=== PATIENT | male | born 1985 | race Caucasian/White ===

== ENCOUNTER 2019-03-22 08:53 | Emergency (ER) | payer SELFPAY ==
--- OUTSIDE RECORDS SUMMARY | 2019-03-22 08:55 | XMS REPORT ---
:1985 [facility] Address [address] [place] [address] Care Team Providers Name Role Phone Unavailable Unavailable Unavailable Payers Payer Name Policy Type Policy Number Effective Date Expiration Date Problems This patient has no known problems. Allergies, Adverse Reactions, Alerts Allergy Allergy Status Severity Reaction(s) Onset Inactive Treating Comments Name Type Date Date Clinician No Known DA Active U 2018-11 Allergies 00:00:0 0 Medications This patient has no known medications. Results Test Description Test Time Test Comments Text Results Atomic Results Result Comments ALCOHOL 2018-11-24 20:56:00 Test Item Value Reference Range Comments ALCOHOL (test code=ALC) 0.053 G/dL <0.003 Ethyl Alcohol Interpretation: 0.100 gm/dL - Legally Intoxicated 0.300-0.400 gm/dL - Severely Intoxicated >0.400 gm/dL - Potentially LethalResults are for Medical purposes only, and not for Legal orEmployment evaluation purposes. BASIC METABOLIC [id number] 15:54:00 Test Item Value Reference Range Comments SODIUM (test code=NA) 142 mEq/L 134-147 POTASSIUM (test code=K) 3.6 mEq/L 3.4-5.0 CHLORIDE (test code=CL) 109 mEq/L 100-108 CARBON DIOXIDE (test code=CO2) 23 mEq/L 21-33 ANION GAP (test code=GAP) 14 0-20 GLUCOSE (test code=GLU) 113 mg/dL 70-110 BLOOD UREA NITROGEN (test 12 mg/dL 7-18 code=BUN) GLOMERULAR FILTRATION RATE 96.6 105-110 Units of measure=ml/min/1.73 (test code=GFR) m2 CREATININE (test code=CREAT) 0.9 mg/dL 0.6-1.3 CALCIUM (test code=CA) 9.8 mg/dL 8.0-10.5 HEPATIC FUNCTION [id number] 15:54:00 Test Item Value Reference Range Comments TOTAL PROTEIN (test code=PROT) 8.4 g/dL 6.4-8.2 ALBUMIN (test code=ALB) 4.80 g/dL 3.4-5.0 BILIRUBIN TOTAL (test code=BILT) 1.00 mg/dL 0.0-1.0 BILIRUBIN DIRECT (test code=BILD) 0.20 MG/DL 0.0-0.30 BILIRUBIN INDIRECT (test code=BILIND) 0.80 MG/DL SGOT/AST (test code=AST) 25 IUnit/L 15-37 SGPT/ALT (test code=ALT) 30 IUnit/L 15-65 ALKALINE PHOSPHATASE TOTAL (test code=ALKP) 96 IUnit/L 20-125 [id number] 15:54:00 Test Item Value Reference Range Comments ACETAMINOPHEN (test code=ACET) < 2 ug/mL 10-30 [id number] 15:54:00 Test Item Value Reference Range Comments SALICYLATE (test code=DARYL) < 1.7 mg/dL 2.8-20.0 [id number] 15:54:00 Test Item Value Reference Range Comments ALCOHOL (test code=ALC) 0.130 G/dL <0.003 Ethyl Alcohol Interpretation: 0.100 gm/dL - Legally Intoxicated 0.300-0.400 gm/dL - Severely Intoxicated >0.400 gm/dL - Potentially LethalResults are for Medical purposes only, and not for Legal orEmployment evaluation purposes. UA RFLX MICR CULT IF [id number] 15:52:00 Test Item Value Reference Range Comments UA COLOR (test code=COLU) YELLOW YEL/STRAW UA APPEARANCE (test code=APPU) CLEAR CLEAR UA GLUCOSE DIPSTICK (test code=DGLUU) NEGATIVE NEGATIVE UA BILIRUBIN DIPSTICK (test code=BILU) NEGATIVE NEGATIVE UA KETONE DIPSTICK (test code=KETU) NEGATIVE NEGATIVE UA SPECIFIC GRAVITY (test code=SGU) 1.008 1.005-1.030 UA BLOOD DIPSTICK (test code=ANN-MARIE) NEGATIVE NEGATIVE UA PH DIPSTICK (test code=MARINA) 5.0 5.0-7.0 UA PROTEIN DIPSTICK (test code=PROU) NEGATIVE NEGATIVE UA UROBILINIOGEN DIPSTICK (test code=URO) 0.2 mg/dL 0.2-1.0 UA NITRITE DIPSTICK (test code=HEATHER) NEGATIVE NEGATIVE UA LEUKOCYTE ESTERASE DIPSTICK (test 1+ NEGATIVE code=LEUU) UA WBC (test code=WBCU) 10-20 WBC/HPF 0-3 UA RBC (test code=RBCU) 0-3 RBC/HPF 0-3 UA WBC NO REFLEX (test code=WBCUCL) 10-20 WBC/HPF 0-3 UA BACTERIA (test code=BACU) TRACE /HPF NONE SEEN UA SQUAMOUS CELLS (test code=SQU) NONE SEEN /HPF NONE SEEN UA MUCUS (test code=MUCU) 2+ /LPF NONE SEEN Indication for culture: Dysuria/FrequencySpecimen Description: CLEAN CATCHDRUGS OF ABUSE SCREEN [id number] 15:51:00 Test Item Value Reference Range Comments URN COCAINE (test code=COCAURN) NEGATIVE NEGATIVE URN CANNABINOIDS (test NEGATIVE NEGATIVE code=CANNABURN) URN AMPHETAMINE (test NEGATIVE NEGATIVE code=AMPHETURN) URN BARBITURATE (test NEGATIVE NEGATIVE code=BARBITURN) URN BENZODIAZEPINE (test NEGATIVE NEGATIVE Cut-off value:200 ng/mL code=BENZOURN) URN OPIATES (test NEGATIVE NEGATIVE Cut-off value:2000 ng/mL code=OPIATURN) URN PHENCYCLIDINE (PCP) (test NEGATIVE NEGATIVE Cutoffs:Barbiturates code=PHENCURN) 200 ng/mLBenzodiazepines 200 ng/mLTHC Cannabinoids 50 ng/mLOpiates(Morphine) 2000 ng/mLAmphetamine 1000 ng/mLCocaine 300 ng/mLPCP phencyclidine 25 ng/mL Unconfirmed screening results shouldnot be used for non-medical purposes. BASIC METABOLIC [id number] 15:43:00 Test Item Value Reference Range Comments SODIUM (test code=NA) 142 mEq/L 134-147 POTASSIUM (test code=K) 3.6 mEq/L 3.4-5.0 CHLORIDE (test code=CL) 109 mEq/L 100-108 CARBON DIOXIDE (test code=CO2) 23 mEq/L 21-33 ANION GAP (test code=GAP) 14 0-20 GLUCOSE (test code=GLU) 113 mg/dL 70-110 BLOOD UREA NITROGEN (test code=BUN) 12 mg/dL 7-18 GLOMERULAR FILTRATION RATE (test code=GFR) 105-110 CREATININE (test code=CREAT) mg/dL 0.6-1.3 CALCIUM (test code=CA) 9.8 mg/dL 8.0-10.5 HEPATIC FUNCTION [id number] 15:43:00 Test Item Value Reference Range Comments TOTAL PROTEIN (test code=PROT) g/dL 6.4-8.2 ALBUMIN (test code=ALB) g/dL 3.4-5.0 BILIRUBIN TOTAL (test code=BILT) mg/dL 0.0-1.0 BILIRUBIN DIRECT (test code=BILD) MG/DL 0.0-0.30 SGOT/AST (test code=AST) IUnit/L 15-37 SGPT/ALT (test code=ALT) IUnit/L 15-65 ALKALINE PHOSPHATASE TOTAL (test code=ALKP) IUnit/L 20-125 [id number] 15:43:00 Test Item Value Reference Range Comments ACETAMINOPHEN (test code=ACET) ug/mL 10-30 [id number] 15:43:00 Test Item Value Reference Range Comments SALICYLATE (test code=DARYL) mg/dL 2.8-20.0 [id number] 15:43:00 Test Item Value Reference Range Comments ALCOHOL (test code=ALC) G/dL <0.003 CBC W/O [id number] 15:30:00 Test Item Value Reference Range Comments WHITE BLOOD CELL (test code=WBC) 9.47 x10 3/uL 4.5-11.0 RED BLOOD CELL (test code=RBC) 5.35 x10 6/uL 4.00-5.60 HEMOGLOBIN (test code=HGB) 16.1 g/dL 12.5-16.9 HEMATOCRIT (test code=HCT) 46.8 % 37.5-50.7 MEAN CELL VOLUME (test code=MCV) 87.5 fL 81.0-99.0 MEAN CELL HGB (test code=MCH) 30.1 pg 27.0-33.0 MEAN CELL HGB CONCETRATION (test code=MCHC) 34.4 g/dL 33.0-37.0 RED CELL DISTRIBUTION WIDTH CV (test code=RDW) 12.7 % 11.5-14.5 RED CELL DISTRIBUTION WIDTH SD (test 39.7 fL 37.0-54.0 code=RDW-SD) PLATELET COUNT (test code=PLT) 347 x10 3/uL 150-400 MEAN PLATELET VOLUME (test code=MPV) 11.7 fL 7.0-9.0
[2019-03-22 09:32] LABS: Potassium 3.2 mmol/L (3.5-5.1)
[2019-03-22 09:39] LABS: Absolute Lymphocytes (CBC) 2.5 K/uL (0.7-4.9); Basophils % 0.4 % (0-1.3); Lymphocytes % 19.3 % (15.3-44.8); MPV 10.9 fL (7.6-11.3); RBC Red Blood Cell Count 5.42 M/uL (4.33-5.43)
[2019-03-22] MEDS ORDERED: POTASSIUM CL SA 10 MEQ TAB PO ONE (09:47)
--- NOTE | 2019-03-22 10:17 | ER ---
Nurse's Notes [facility] Name: Raymond Schultz Age: 34 yrs Sex: Male : 1985 Arrival Date: 03/22/2019 Time: 08:55 Bed 16 Private MD: Diagnosis: Suicidal ideations;Dehydration-resolved Presentation: 03/22 08:45 Presenting complaint: EMS states: called out by [place] [employer] to be assessed for mental sv health. Pt reports having racing thoughts and being anxious, denies suicidal and homicidal ideation. Pt reported using meth 4 days ago and hasn't been sleeping but slept last night. Transition of care: patient was not received from another setting of care. Onset of symptoms was March 22, 2019. Risk Assessment: Do you want to hurt yourself or someone else? Patient reports no desire to harm self or others. Initial Sepsis Screen: Does the patient meet any 2 criteria? RR > 20 per min. No. Patient's initial sepsis screen is negative. Does the patient have a suspected source of infection? No. Patient's initial sepsis screen is negative. Care prior to arrival: None. 08:45 Method Of Arrival: EMS: [facility] sv 08:45 Acuity: LISA 4 sv 10:45 Acuity: LISA 2 aj1 Triage Assessment: 08:45 General: Appears in no apparent distress. well developed, Behavior is anxious, sv restless. Pain: Denies pain. Neuro: Level of Consciousness is awake, alert, obeys commands, Oriented to person, place, time, situation, Moves all extremities. Full function Gait is steady. Respiratory: Airway is patent Respiratory effort is even, unlabored, Respiratory pattern is regular, symmetrical. Derm: Skin is normal, Bruising that is on right hand. Historical: - Allergies: 09:03 No Known Allergies; sv - PMHx: 09:03 Anxiety; Bipolar disorder; Depression; Schizophrenia; sv - PSHx: 09:03 None; sv - Immunization history:: Adult Immunizations unknown. - Social history:: Smoking status: unknown. - Ebola Screening: : No symptoms or risks identified at this time. Screenin:03 Abuse screen: Denies threats or abuse. Denies injuries from another. Nutritional sv screening: No deficits noted. Tuberculosis screening: No symptoms or risk factors identified. Fall Risk None identified. Assessment: 08:50 Reassessment: Pt being asked questions but not answering. Pt laying in the stretcher, sv sat up in the stretcher, got off the stretcher and started running down the hallway. Dhruv Davison called. 08:55 Reassessment: Pt returned back to the room on his own. sv 09:50 Reassessment: Pt requesting food, ok by Risa MERRITT.Pt given sandwich and chips. sv 10:27 Reassessment: Patient appears in no apparent distress at this time. No changes from aj1 previously documented assessment. Patient and/or family updated on plan of care and expected duration. Pain level reassessed. Patient is alert, oriented x 3, equal unlabored respirations, skin warm/dry/pink. 10:46 Reassessment: After discharge patient is remaining in his bed. When asked if he needed aj1 anything patient states that he can't leave, he needs to be transferred to a psych facility. MACHINE ROOM OPERATOR at bedside to talk to patient. Patient states that if he leaves the ER he is going to kill himself. 11:05 Reassessment: Patient and/or family updated on plan of care and expected duration. Pain aj1 level reassessed. General: Behavior is cooperative, anxious, restless. Pain: Denies pain. Neuro: Level of Consciousness is awake, alert, obeys commands, Oriented to person, place, time, situation. Cardiovascular: Patient's skin is warm and dry. Respiratory: Airway is patent Respiratory effort is even, unlabored, Respiratory pattern is regular, symmetrical. GI: No signs and/or symptoms were reported involving the gastrointestinal system. : No signs and/or symptoms were reported regarding the genitourinary system. EENT: No signs and/or symptoms were reported regarding the EENT system. Derm: No signs and/or symptoms reported regarding the dermatologic system. Skin is pink, warm \\T\\ dry. normal. Musculoskeletal: No signs and/or symptoms reported regarding the musculoskeletal system. Circulation, motion, and sensation intact. 12:04 Reassessment: Patient appears in no apparent distress at this time. No changes from aj1 previously documented assessment. Patient and/or family updated on plan of care and expected duration. Pain level reassessed. Patient is alert, oriented x 3, equal unlabored respirations, skin warm/dry/pink. 13:05 Reassessment: Patient appears in no apparent distress at this time. No changes from aj1 previously documented assessment. Patient and/or family updated on plan of care and expected duration. Pain level reassessed. Patient is alert, oriented x 3, equal unlabored respirations, skin warm/dry/pink. 14:05 Reassessment: Patient appears in no apparent distress at this time. No changes from aj1 previously documented assessment. Patient and/or family updated on plan of care and expected duration. Pain level reassessed. Patient is alert, oriented x 3, equal unlabored respirations, skin warm/dry/pink. 15:05 Reassessment: Patient appears in no apparent distress at this time. No changes from aj1 previously documented assessment. Patient and/or family updated on plan of care and expected duration. Pain level reassessed. Patient is alert, oriented x 3, equal unlabored respirations, skin warm/dry/pink. 16:05 Reassessment: Patient appears in no apparent distress at this time. No changes from aj1 previously documented assessment. Patient and/or family updated on plan of care and expected duration. Pain level reassessed. Patient is alert, oriented x 3, equal unlabored respirations, skin warm/dry/pink. 17:03 Reassessment: Patient appears in no apparent distress at this time. No changes from aj1 previously documented assessment. Patient and/or family updated on plan of care and expected duration. Pain level reassessed. Patient is alert, oriented x 3, equal unlabored respirations, skin warm/dry/pink. 18:05 Reassessment: Patient appears in no apparent distress at this time. No changes from aj1 previously documented assessment. Patient and/or family updated on plan of care and expected duration. Pain level reassessed. Patient is alert, oriented x 3, equal unlabored respirations, skin warm/dry/pink. 19:21 Reassessment: Patient and/or family updated on plan of care and expected duration. Pain ea level reassessed. Patient is alert, oriented x 3, equal unlabored respirations, skin warm/dry/pink. Report given to [facility]. Pt left ED via stretcher per EMS. Pt tolerating well. Vital Signs: 08:59 BP 136 / 86; Pulse 83; Resp 24; Temp 97.8; Pulse Ox 100% on R/A; Pain 0/10; em1 13:00 BP 141 / 76; Pulse 84; Resp 24; Pulse Ox 100% ; ms 17:23 BP 146 / 85; Pulse 76; Resp 22; Pulse Ox 100% ; ms 19:00 BP 138 / 76; Pulse 70; Resp 19; Pulse Ox 100% ; ea ED Course: 08:55 Patient arrived in ED. sg 08:57 Risa Rockwell FNP-C is PHCP. kb 08:57 Sharri Arora MD is Attending Physician. kb 08:58 Zee Diggs RN is Primary Nurse. sv 09:02 Triage completed. sv 09:03 Arm band placed on. sv 09:03 Patient has correct armband on for positive identification. Bed in low position. Call sv light in reach. Pulse ox on. NIBP on. Head of bed elevated. 10:00 Report given to Stacey LOMBARDI. sv 10:27 No provider procedures requiring assistance completed. Patient did not have IV access aj1 during this emergency room visit. 10:55 Initial lab(s) drawn, by me, sent to lab. Urine collected: clean catch specimen. aj1 11:16 EKG done, by ED staff, reviewed by Sharri Arora MD. ms 11:30 safety checks done on paperwork. ms 13:47 notified [facility], will send a screener to evaluate pt. bd 17:03 Stacey Reid, RN is Primary Nurse. aj1 17:24 PHCP role handed off by Risa Rockwell FNP-C snw 17:24 Diamond Blake FNP-C is PHCP. snw 18:00 faxed chart to [facility], spoke with kezia, "there is a bed available, nurse bd will go over chart and call back to do nurse to nurse. 18:08 nurse to nurse done with kezia at psychiatric. bd 18:18 Report given to HARJIT Richards at [facility]. ER provider will call doctor to doctor aj1 report. 18:30 approval at psychiatric given by kezia. bd Administered Medications: 09:00 CANCELLED (Physician Discretion): NS 0.9% 1000 ml IV at 1000 ml once kb 09:00 CANCELLED (Physician Discretion): Ativan 0.5 mg IVP once kb 09:45 Drug: Potassium Chloride 40 mEq Route: PO; sv 19:00 Follow up: Response: No adverse reaction ea Outcome: 10:17 Discharge ordered by . nj 10:28 Discharged to home ambulatory. aj1 10:28 Condition: good 10:28 Discharge instructions given to patient, Instructed on discharge instructions, follow up and referral plans. Demonstrated understanding of instructions, follow-up care. 18:24 ER care complete, transfer ordered by . w 19:23 Patient left the ED. ea Signatures: Risa Rockwell, RUBBER COMPOUNDER MIXER-C RUBBER COMPOUNDER MIXER-Ckb Sarah Valdez Angela, RN RN aj1 Zee Diggs, RN HARJIT Eb Waller RN RN sg Diamond Blake, RUBBER COMPOUNDER MIXER-C RUBBER COMPOUNDER MIXER-Csnw Vandana Diaz ms, [facility] Smitha Laurent RN RN ea Corrections: (The following items were deleted from the chart) 10:55 10:53 BP 148 / 88; Pulse 89bpm; Resp 20bpm; Pulse Ox 99% RA; Temp 97.7F; Pain 0/10; sg sg 10:55 09:50 BP 140 / 82; Pulse 83bpm; Resp 20bpm; Pulse Ox 99% RA; sg sg
--- NOTE | 2019-03-22 10:18 | EDPHYS ---
Physician Documentation [facility] Name: Raymond Schultz Age: 34 yrs Sex: Male : 1985 Arrival Date: 03/22/2019 Time: 08:55 Bed 16 Private MD: ED Physician Sharri Arora HPI: 03/22 10:32 This 34 yrs old Male presents to ER via EMS with complaints of Drug Abuse, kb Racing thoughts. 10:32 The patient presents to the emergency department with a history of substance abuse, kb Type: dana and meth. Onset: The symptoms/episode began/occurred 4 day(s) ago. Associated signs and symptoms: Pertinent positives; substance abuse, Pertinent negatives: homicidal ideation, suicide ideation. Severity of symptoms: At their worst the symptoms were moderate in the emergency department the symptoms are unchanged. The patient has experienced similar episodes in the past. The patient has not recently seen a physician. Pt reports he has been doing meth and dana lately. When asked what brought him to the ER he replied "I've just been doing a lot of drugs and I can't sleep at night." EMS reports they were called by PD that were on scene. Pt has no medical complaints. Historical: - Allergies: 09:03 No Known Allergies; sv - PMHx: 09:03 Anxiety; Bipolar disorder; Depression; Schizophrenia; sv - PSHx: 09:03 None; sv - Immunization history:: Adult Immunizations unknown. - Social history:: Smoking status: unknown. - Ebola Screening: : No symptoms or risks identified at this time. ROS: 10:35 Constitutional: Negative for fever, chills, and weight loss, Neck: Negative for injury, kb pain, and swelling, Cardiovascular: Negative for chest pain, palpitations, and edema, Respiratory: Negative for shortness of breath, cough, wheezing, and pleuritic chest pain, Abdomen/GI: Negative for abdominal pain, nausea, vomiting, diarrhea, and constipation, Back: Negative for injury and pain, MS/Extremity: Negative for injury and deformity, Skin: Negative for injury, rash, and discoloration, Neuro: Negative for headache, weakness, numbness, tingling, and seizure. 10:35 Psych: Positive for drug dependence, insomnia. Exam: 10:36 Constitutional: This is a well developed, well nourished patient who is awake, alert, kb and in no acute distress. Head/Face: Normocephalic, atraumatic. ENT: Nares patent. No nasal discharge, no septal abnormalities noted. Tympanic membranes are normal and external auditory canals are clear. Oropharynx with no redness, swelling, or masses, exudates, or evidence of obstruction, uvula midline. Mucous membranes moist. Neck: Trachea midline, no thyromegaly or masses palpated, and no cervical lymphadenopathy. Supple, full range of motion without nuchal rigidity, or vertebral point tenderness. No Meningismus. Chest/axilla: Normal chest wall appearance and motion. Nontender with no deformity. No lesions are appreciated. Cardiovascular: Regular rate and rhythm with a normal S1 and S2. No gallops, murmurs, or rubs. Normal PMI, no JVD. No pulse deficits. Respiratory: Lungs have equal breath sounds bilaterally, clear to auscultation and percussion. No rales, rhonchi or wheezes noted. No increased work of breathing, no retractions or nasal flaring. Abdomen/GI: Soft, non-tender, with normal bowel sounds. No distension or tympany. No guarding or rebound. No evidence of tenderness throughout. Skin: Warm, dry with normal turgor. Normal color with no rashes, no lesions, and no evidence of cellulitis. MS/ Extremity: Pulses equal, no cyanosis. Neurovascular intact. Full, normal range of motion. Neuro: Awake and alert, GCS 15, oriented to person, place, time, and situation. Cranial nerves II-XII grossly intact. Motor strength 5/5 in all extremities. Sensory grossly intact. Cerebellar exam normal. Normal gait. 10:36 Psych: Behavior/mood is cooperative, Affect is calm, Oriented to person, place, time, Patient has no thoughts/intents to harm self or others. Judgement / Insight is normal. Memory is normal. Delusions/hallucinations are not present. Vital Signs: 08:59 BP 136 / 86; Pulse 83; Resp 24; Temp 97.8; Pulse Ox 100% on R/A; Pain 0/10; em1 13:00 BP 141 / 76; Pulse 84; Resp 24; Pulse Ox 100% ; ms 17:23 BP 146 / 85; Pulse 76; Resp 22; Pulse Ox 100% ; ms 19:00 BP 138 / 76; Pulse 70; Resp 19; Pulse Ox 100% ; ea MDM: 08:57 Patient medically screened. kb 10:32 Data reviewed: vital signs, nurses notes. Data interpreted: Pulse oximetry: on room air kb is 100 %. Interpretation: normal. Counseling: I had a detailed discussion with the patient and/or guardian regarding: the historical points, exam findings, and any diagnostic results supporting the discharge/admit diagnosis, lab results, the need for outpatient follow up, a family practitioner, to return to the emergency department if symptoms worsen or persist or if there are any questions or concerns that arise at home. 10:46 ED course: Pt denied homicidal/suicidal ideations upon arrival. Nurse discharged ptnj but he wants to be admitted to a [facility]. When I asked why he wanted to be admitted to psych he said because there are people after him. Pt educated that he should report that to the police but he said he's reporting it to me and that he wants to be transferred. Pt educated that we cannot emergently transfer him for that reason. Pt states "fine, if I walk out of here I will kill myself.". 17:30 Transition of care: After a detail discussion of the patient's case, care is kb transferred to Diamond Blake [facility]. 03/22 08:58 Order name: CBC with Diff; Complete Time: 09:43 kb 03/22 08:58 Order name: Basic Metabolic Panel; Complete Time: 09:34 kb 03/22 08:58 Order name: UDS; Complete Time: 11:30 kb 03/22 10:45 Order name: Acetaminophen; Complete Time: 12:11 kb 03/22 10:45 Order name: ETOH Level; Complete Time: 12:11 kb 03/22 10:45 Order name: Hepatic Function; Complete Time: 12:11 kb 03/22 10:45 Order name: PT-INR; Complete Time: 11:16 kb 03/22 10:45 Order name: Ptt, Activated; Complete Time: 11:16 kb 03/22 10:45 Order name: Salicylate; Complete Time: 12:11 kb 03/22 10:45 Order name: EKG; Complete Time: 10:47 kb 03/22 11:19 Order name: Urine Dipstick--Ancillary (enter results); Complete Time: 11:39 bd 03/22 10:45 Order name: EKG - Nurse/Tech; Complete Time: 11:21 kb 03/22 10:45 Order name: Labs collected and sent; Complete Time: 11:04 kb 03/22 10:45 Order name: Urine Dipstick-Ancillary (obtain specimen); Complete Time: 11:04 kb 03/22 14:46 Order name: Diet Regular; Complete Time: 14:47 ms Administered Medications: 09:00 CANCELLED (Physician Discretion): NS 0.9% 1000 ml IV at 1000 ml once kb 09:00 CANCELLED (Physician Discretion): Ativan 0.5 mg IVP once kb 09:45 Drug: Potassium Chloride 40 mEq Route: PO; sv 19:00 Follow up: Response: No adverse reaction ea Disposition: 03/22/19 18:24 Transfer ordered to Psych Facility. Diagnosis are Suicidal ideations, Dehydration - resolved. - Reason for transfer: Higher level of care. - Accepting physician is Dr. Ricketts. - Condition is Stable. - Problem is an acute exacerbation. - Symptoms are unchanged. Addendum: 04/02/2019 21:33 Co-signature as Attending Physician, hSarri Arora MD. m a2 Signatures: Dispatcher [employer] EDRisa Fry FNP-C FNP-Zee Bridges RN Diamond Gold FNP-C MARIEL-Smitha Cortes RN RN ea Alzahri, Mohammad, MD MD ma2 Corrections: (The following items were deleted from the chart) 03/22 09:00 08:58 IV Saline Lock ordered. kb kb 09:00 08:58 NS 0.9% 1000 ml IV at 1000 ml once ordered. kb kb 09:00 08:58 Ativan 0.5 mg IVP once ordered. kb kb 10:36 10:35 Psych: Positive for drug dependence, kb kb 10:45 10:17 03/22/2019 10:17 Discharged to Home. Impression: Hypokalemia; Drug use. Condition kb is Stable. Forms are Medication Reconciliation Form, Thank You Letter, Antibiotic Education, Prescription Opioid Use. Follow up: Emergency Department; When: As needed; Reason: Worsening of condition. Follow up: Private Physician; When: 2 - 3 days; Reason: Recheck today's complaints, Continuance of care, Re-evaluation by your physician. kb 11:04 10:43 IV Saline Lock ordered. kb aj1 19:23 18:24 03/22/2019 18:24 Transfer ordered to Psych Facility. Diagnosis is Suicidal ea ideations; Dehydration - resolved. Reason for transfer: Higher level of care. Accepting physician is Dr. Ricketts. Condition is Stable. Problem is an acute exacerbation. Symptoms are unchanged. snw
[2019-03-22 11:14] LABS: Protime INR 1.12
[2019-03-22 11:26] LABS: Barbiturates NEGATIVE (NEGATIVE); Benzodiazepines NEGATIVE (NEGATIVE); Cocaine NEGATIVE (NEGATIVE); METHAMPHETAM NEGATIVE (NEGATIVE); Methadone NEGATIVE (NEGATIVE); Opiates NEGATIVE (NEGATIVE); Phencyclidine NEGATIVE (NEGATIVE); THC Cannibis NEGATIVE (NEGATIVE)
[2019-03-22 11:35] LABS: Urine Blood 2+ (NEG); Urine Glucose NEGATIVE (NEG); Urine Protein TRACE (NEG); Urine Specific Gravity 1.025 (1.005-1.030)
[2019-03-22 11:53] LABS: ALT/SGPT 37 U/L (12-78); AST/SGOT 63 U/L (15-37); Albumin 4.5 g/dL (3.4-5.0); Alkaline Phosphatase 78 U/L (45-117); Bilirubin Direct 0.5 mg/dL (0-0.2); Bilirubin Total 2.9 mg/dL (0.2-1.0); Protein, Total 7.9 g/dL (6.4-8.2)
--- NOTE | 2019-03-22 18:35 | EKG ---
Test Date: 2019-03-22 Test Time: 11:09:58 Iron Assorter: SEU MEASUREMENT RESULTS: Intervals: Rate: 68 CO: 150 QRSD: 102 QT: 416 QTc: 442 [place]: P: 52 CO: 150 QRS: 25 T: 33 INTERPRETIVE STATEMENTS: Normal sinus rhythm Normal ECG Compared to ECG 06/24/2016 19:12:23 No significant changes Electronically Signed On 03-22-19 18:35:00 [employer] by Leonides Jessica
[2019-03-22 19:40] VITALS: TEMP 97.8; O2SAT 100
[2019-03-22 19:42] VITALS: BP 146/85
== END 2019-03-22 19:23 ==
LOC: ER 08:53
DX: R45.851 Suicidal ideations (principal)
CPT/HCPCS: 36415; 80048; 80076; 80307; 80320; 80329; 81003; 85025; 85610; 85730; 93005; 99284

== ENCOUNTER 2019-05-25 12:07 | Emergency (ER) | payer SELFPAY ==
--- OUTSIDE RECORDS SUMMARY | 2019-05-25 12:23 | XMS REPORT ---
:1985 Author Organization [facility] Address [address] [place] [address] Care Team Providers Name Role Phone Unavailable Unavailable Unavailable Payers Payer Name Policy Type Policy Number Effective Date Expiration Date Problems This patient has no known problems. Allergies, Adverse Reactions, Alerts Allergy Allergy Status Severity Reaction(s) Onset Inactive Treating Comments Name Type Date Date Clinician No Known DA Active U 2018-11 Allergies -05 00:00:0 0 Medications This patient has no known medications. Results Test Description Test Time Test Comments Text Results Atomic Results Result Comments RPR Qualitative 2019-03-23 16:02:30 Test Item Value Reference Range Comments RPR Qual (test code=RPR Qual) Non-Reactive Non-Reactive Reactive Control (test code=Reactive Control) Reactive Weak Reactive Control (test code=Weak Reactive Control) Weak Reactive Non-Reactive Control (test code=Non-Reactive Control) Non-Reactive Lot # (test code=Lot #) [id number] Expiration Dt (test code=Expiration Dt) 01-20-20 Lipid [id number] 08:26:39 Test Item Value Reference Range Comments Cholesterol Total (test 152 mg/dL 0-200 RISK OF HEART DISEASEPublished code=Cholesterol Total) by [place] [employer] Analyte Optimal Borderline Increased RiskCHOL <200 200-239 >240TRIG <150 150-199 >200HDL Male >60 <40HDL Female >60 <50LDL <100 130-159 >160LDL Near optimal is 100-129 Triglycerides (test 79 mg/dL 9-200 code=Triglycerides) HDL (test code=HDL) 44 mg/dL 40-60 LDL (test code=LDL) 92 mg/dL 0-130 The equation being used in this calculation is LDL=(Chol - HDL) - (Trig / 5) VLDL (test code=VLDL) 16 mg/dL 5-40 The equation being used in this calculation is VLDL=Trig / 5 Chol/HDL (test 3.5 ratio 0.0-5.0 code=Chol/HDL) LDL/HDL Ratio (test 2 The equation being used in this code=LDL/HDL Ratio) calculation is LDL/HDL Ratio=LDL Calc/HDL Chol Thyroid Stimulating [id number] 08:26:39 Test Item Value Reference Range Comments TSH (test code=TSH) 1.030 mIU/mL 0.270-4.200 Potassium [id number] 08:23:08 Test Item Value Reference Range Comments Potassium Level (test code=Potassium Level) 4.2 mmol/L 3.5-5.1 [id number] 20:56:00 Test Item Value Reference Range Comments ALCOHOL (test code=ALC) 0.053 G/dL <0.003 Ethyl Alcohol Interpretation: 0.100 gm/dL - Legally Intoxicated 0.300-0.400 gm/dL - Severely Intoxicated >0.400 gm/dL - Potentially LethalResults are for Medical purposes only, and not for Legal orEmployment evaluation purposes. BASIC METABOLIC [id number] 15:54:00 Test Item Value Reference Range Comments [...] (test code=CA) 9.8 mg/dL 8.0-10.5 HEPATIC FUNCTION [id number] 15:54:00 Test Item Value Reference Range Comments TOTAL PROTEIN (test code=PROT) 8.4 g/dL 6.4-8.2 ALBUMIN (test code=ALB) 4.80 g/dL 3.4-5.0 BILIRUBIN TOTAL (test code=BILT) 1.00 mg/dL 0.0-1.0 BILIRUBIN DIRECT (test code=BILD) 0.20 MG/DL 0.0-0.30 BILIRUBIN INDIRECT (test code=BILIND) 0.80 MG/DL SGOT/AST (test code=AST) 25 IUnit/L 15-37 SGPT/ALT (test code=ALT) 30 IUnit/L 15-65 ALKALINE PHOSPHATASE TOTAL (test code=ALKP) 96 IUnit/L 20-125 [id number] 15:54:00 Test Item Value Reference Range Comments ACETAMINOPHEN (test code=ACET) < 2 ug/mL 10-30 [id number] 15:54:00 Test Item Value Reference Range Comments SALICYLATE (test code=DARYL) < 1.7 mg/dL 2.8-20.0 [id number] 15:54:00 Test Item Value Reference Range Comments ALCOHOL (test code=ALC) 0.130 G/dL <0.003 Ethyl Alcohol Interpretation: 0.100 gm/dL - Legally Intoxicated 0.300-0.400 gm/dL - Severely Intoxicated >0.400 gm/dL - Potentially LethalResults are for Medical purposes only, and not for Legal orEmployment evaluation purposes. UA RFLX MICR CULT IF [id number] 15:52:00 Test Item Value Reference Range Comments [...] Dysuria/FrequencySpecimen Description: CLEAN CATCHDRUGS OF ABUSE SCREEN [id number] 15:51:00 Test Item Value Reference Range Comments [...] be used for non-medical purposes. BASIC METABOLIC [id number] 15:43:00 Test Item Value Reference Range Comments [...] (test code=CA) 9.8 mg/dL 8.0-10.5 HEPATIC FUNCTION [id number] 15:43:00 Test Item Value Reference Range Comments TOTAL PROTEIN (test code=PROT) g/dL 6.4-8.2 ALBUMIN (test code=ALB) g/dL 3.4-5.0 BILIRUBIN TOTAL (test code=BILT) mg/dL 0.0-1.0 BILIRUBIN DIRECT (test code=BILD) MG/DL 0.0-0.30 SGOT/AST (test code=AST) IUnit/L 15-37 SGPT/ALT (test code=ALT) IUnit/L 15-65 ALKALINE PHOSPHATASE TOTAL (test code=ALKP) IUnit/L 20-125 [id number] 15:43:00 Test Item Value Reference Range Comments ACETAMINOPHEN (test code=ACET) ug/mL 10-30 [id number] 15:43:00 Test Item Value Reference Range Comments SALICYLATE (test code=DARYL) mg/dL 2.8-20.0 [id number] 15:43:00 Test Item Value Reference Range Comments ALCOHOL (test code=ALC) G/dL <0.003 CBC W/O [id number] 15:30:00 Test Item Value Reference Range Comments [...]
--- NOTE | 2019-05-25 12:58 | RAD REPORT ---
EXAM DESCRIPTION: CT - Stone Protocol - 05/25/2019 12:46 pm CLINICAL HISTORY: left flank pain COMPARISON: CT-STONE PROTOCOL dated 02/27/2010 TECHNIQUE: Axial 3 mm thick images were obtained without oral or IV contrast. The [id number] span s the entirety of the system including uppermost abdomen and lung bases. All CT scans are performed using dose optimization technique as appropriate and may include automated exposure control or mA/KV adjustment according to patient size. FINDINGS: No hydronephrosis is present and no obstructing ureteral calculi. A 3 millimeter nonobstru cting calyx calcifications seen lower pole left kidney. No suspicious renal masses. Isodense masses a nd pyelonephritis are not excluded on a stone protocol CT scan. No urinary bladder suspicious finding . No significant adrenal finding. Several phleboliths have developed in the pelvis since the comparis on. Imaged portions of the liver, spleen and pancreas show no suspicious findings on non-contrast imaging . No gallbladder or biliary tree abnormality identified. No suspicious bowel findings. No appendicitis findings. No hernia, mass or bulky lymphadenopathy noted. No free air, free fluid or inflammatory stranding. No significant bony abnormality. IMPRESSION: Negative CT stone protocol study for acute finding. Isodense masses and pyelonephritis are not excluded on stone protocol technique.
[2019-05-25 13:19] LABS: Urine Blood TRACE (NEG); Urine Glucose NEGATIVE (NEG); Urine Protein TRACE (NEG); Urine Specific Gravity >1.030 (1.005-1.030)
[2019-05-25 13:28] LABS: Absolute Lymphocytes (CBC) 2.5 K/uL (0.7-4.9); Basophils % 0.4 % (0-1.3); Hematocrit 49.8 % (39.6-49.0); Lymphocytes % 22.6 % (15.3-44.8); MPV 10.6 fL (7.6-11.3); RBC Red Blood Cell Count 5.61 M/uL (4.33-5.43)
[2019-05-25 13:36] LABS: Albumin 4.6 g/dL (3.4-5.0); Bilirubin Direct 0.5 mg/dL (0-0.2); Bilirubin Total 2.4 mg/dL (0.2-1.0); Potassium 3.4 mmol/L (3.5-5.1); Protein, Total 8.6 g/dL (6.4-8.2)
--- NOTE | 2019-05-25 14:28 | ER ---
Nurse's Notes [facility] Name: Raymond Schultz Age: 34 yrs Sex: Male : 1985 Arrival Date: 05/25/2019 Time: 12:16 Bed 7 Private MD: Diagnosis: Flank Pain Presentation: 05/24 12:17 Chief complaint: Patient states: Right mid-back pain started a few days ago with jl7 painful urination. Coronavirus screen: The patient has NOT traveled to a country currently being monitored by the [facility] within the last 14 days. Proceed with normal triage procedures. Ebola Screen: No symptoms or risks identified at this time. Initial Sepsis Screen: Does the patient meet any 2 criteria? No. Patient's initial sepsis screen is negative. Does the patient have a suspected source of infection? No. Patient's initial sepsis screen is negative. Risk Assessment: Do you want to hurt yourself or someone else? Patient reports no desire to harm self or others. Onset of symptoms is unknown. Care prior to arrival: None. 12:17 Method Of Arrival: Law Enforcement: Elizabeth ELLINGTON 7 12:17 Acuity: LISA 3 jl7 Historical: - Allergies: 12:21 No Known Allergies; jl7 - Home Meds: 12:21 Paxil Oral [Active]; Seroquel Oral [Active]; Trazodone Oral [Active]; jl7 - PMHx: 12:21 Anxiety; Bipolar disorder; Depression; Schizophrenia; jl7 - PSHx: 12:21 None; jl7 - Immunization history:: Adult Immunizations unknown. - Social history:: Smoking status: Patient denies any tobacco usage or history of. Screenin:40 Abuse screen: Denies threats or abuse. Denies injuries from another. Nutritional ia1 screening: No deficits noted. Tuberculosis screening: No symptoms or risk factors identified. Fall Risk No fall in past 12 months (0 pts). No secondary diagnosis (0 pts). IV access (20 points). Ambulatory Aid- None/Bed Rest/Nurse Assist (0 pts). Gait- Normal/Bed Rest/Wheelchair (0 pts) Mental Status- Oriented to own ability (0 pts). Total Villegas Fall Scale indicates No Risk (0-24 pts). Assessment: 12:40 Pain: Complains of pain in left low back and left mid back Pain currently is 3 out of ia1 10 on a pain scale. Neuro: Level of Consciousness is awake, alert, obeys commands, Oriented to person, place, time, situation. Cardiovascular: Patient's skin is warm and dry. Respiratory: Airway is patent Respiratory effort is even, unlabored, Respiratory pattern is regular, symmetrical, Breath sounds are clear bilaterally. GI: Abd is soft Abdomen is tender to palpation X 4 quads. : Reports Has trouble initiating a stream. Denies burning with urination. Derm: Skin is pink, warm \T\ dry. 12:40 General: Appears in no apparent distress. uncomfortable, Behavior is cooperative, ia1 appropriate for age, anxious, [place] aoc director combat operations officer at bedside.. 14:45 Reassessment: Pt began yelling at [place] [employer] officer at bedside, estee michelle called, pt jl7 able to calm down. Awaiting additional [place] [employer] officers before discharging pt. 15:09 Reassessment: [place] Pd at bedside. 7 Vital Signs: 12:17 BP 140 / 101; Pulse 81; Resp 16 S; Temp 98.6(O); Pulse Ox 100% on R/A; Weight 117.93 kg 7 (R); Height 6 ft. 0 in. (182.88 cm) (R); Pain 0/10; 13:28 BP 139 / 100; Pulse 78; Resp 20 S; Pulse Ox 100% on R/A; ia1 13:56 BP 143 / 101; Pulse 72; Resp 18; Temp 98.8(O); Pulse Ox 99% on R/A; mh5 12:17 Body Mass Index 35.26 (117.93 kg, 182.88 cm) 7 ED Course: 12:16 Patient arrived in ED. jl7 12:21 Triage completed. jl7 12:21 Wally Horton PA is PHCP. [facility] 12:21 Rik Arroyo MD is Attending Physician. [facility] 12:21 Arm band placed on right wrist. jl7 12:40 Patient has correct armband on for positive identification. Bed in low position. Call ia1 light in reach. Side rails up X 1. 12:52 CT Stone Protocol In Process Unspecified. EDMS 12:54 Gerry Mendes RN is Primary Nurse. 7 13:20 Inserted saline lock: 20 gauge in right antecubital area, using aseptic technique. ia1 Blood collected. 15:09 No provider procedures requiring assistance completed. IV discontinued, intact, jl7 bleeding controlled, No redness/swelling at site. Pressure dressing applied. Administered Medications: No medications were administered Outcome: 14:27 Discharge ordered by MD. joaquin 15:09 Attestation : I agree with everything documented by NAREN Ramirez Student Nurse. jl7 15:09 Discharged to Law Enforcement 15:09 Condition: stable 15:09 Discharge instructions given to patient, police, Instructed on discharge instructions, follow up and referral plans. Demonstrated understanding of instructions, follow-up care. 15:10 Patient left the ED. jl7 Signatures: Dispatcher [employer] EDMS Wally Horton PA PA jmm Martinez, [facility] Gerry Mendes RN RN jl7 Ashley Painter ia1 Corrections: (The following items were deleted from the chart) 13:31 13:20 General: Appears in no apparent distress. uncomfortable, Behavior is cooperative, ia1 appropriate for age, anxious, ia1 13:31 13:20 Pain: Complains of pain in left low back and left mid back Pain currently is 3 ia1 out of 10 on a pain scale. ia1 13:31 13:20 Neuro: Level of Consciousness is awake, alert, obeys commands, Oriented to ia1 person, place, time, situation, ia1 13:31 13:20 Cardiovascular: Patient's skin is warm and dry. ia1 ia1 13:31 13:20 Respiratory: Airway is patent Respiratory effort is even, unlabored, Respiratory ia1 pattern is regular, symmetrical, Breath sounds are clear bilaterally. ia1 13:31 13:20 GI: Abd is soft Abdomen is tender to palpation X 4 quads. ia1 ia1 :31 13:20 : Reports Has trouble initiating a stream. Denies burning with urination, ia1 ia1 :31 13:20 Derm: Skin is pink, warm \T\ dry. ia1 ia1 13:35 12:40 General: Appears in no apparent distress. uncomfortable, Behavior is cooperative, ia1 appropriate for age, anxious, ia1 13:35 12:40 General: [place] Corporate Buyer at bedside.. ia1 ia1
--- NOTE | 2019-05-25 14:29 | EDPHYS ---
Physician Documentation [facility] Name: Raymond Schultz Age: 34 yrs Sex: Male : 1985 Arrival Date: 05/25/2019 Time: 12:16 Bed 7 Private MD: ED Physician Rik Arroyo HPI: 05/24 12:31 This 34 yrs old Male presents to ER via Law Enforcement with complaints of jmm Back Pain. 12:31 The patient presents with pain that is acute. Onset: The symptoms/episode jmm began/occurred acutely, just prior to arrival. The pain does not radiate. Associated signs and symptoms: Pertinent positives: dysuria, Pertinent negatives: vomiting. This is a 34 year old male with a history of bipolar depression, schizophrenia that presents to the ED with complaints of left flank pain which is acute onset along with dark urination. Denies history of kidney stones. Denies abdominal pain, denies vomiting. . Historical: - Allergies: 12:21 No Known Allergies; jl7 - Home Meds: 12:21 Paxil Oral [Active]; Seroquel Oral [Active]; Trazodone Oral [Active]; jl7 - PMHx: 12:21 Anxiety; Bipolar disorder; Depression; Schizophrenia; jl7 - PSHx: 12:21 None; jl7 - Immunization history:: Adult Immunizations unknown. - Social history:: Smoking status: Patient denies any tobacco usage or history of. ROS: 12:31 Constitutional: Negative for fever, chills, and weight loss, Cardiovascular: Negative jmm for chest pain, palpitations, and edema, Respiratory: Negative for shortness of breath, cough, wheezing, and pleuritic chest pain, Abdomen/GI: Negative for abdominal pain, nausea, vomiting, diarrhea, and constipation. 12:31 Back: Positive for pain at rest, flank pain, on the left. 12:31 : Positive for urinary symptoms. 12:31 All other systems are negative. Exam: 12:31 Constitutional: This is a well developed, well nourished patient who is awake, alert, jmm and in no acute distress. Head/Face: atraumatic. Eyes: EOMI, no conjunctival erythema appreciated ENT: Moist Mucus Membranes Neck: Trachea midline, Supple Chest/axilla: Normal chest wall appearance and motion. Cardiovascular: Regular rate and rhythm. No edema appreciated Respiratory: Normal respirations, no respiratory distress appreciated Abdomen/GI: Non distended, soft 12:31 Skin: General appearance color normal MS/ Extremity: Moves all extremities, no obvious deformities appreciated, no edema noted to the lower extremities Neuro: Awake and alert, normal gait Psych: Behavior is normal, Mood is normal, Patient is cooperative and pleasant 12:31 Back: CVA tenderness, that is mild, is noted on the left. Vital Signs: 12:17 BP 140 / 101; Pulse 81; Resp 16 S; Temp 98.6(O); Pulse Ox 100% on R/A; Weight 117.93 kg jl7 (R); Height 6 ft. 0 in. (182.88 cm) (R); Pain 0/10; 13:28 BP 139 / 100; Pulse 78; Resp 20 S; Pulse Ox 100% on R/A; ia1 13:56 BP 143 / 101; Pulse 72; Resp 18; Temp 98.8(O); Pulse Ox 99% on R/A; mh5 12:17 Body Mass Index 35.26 (117.93 kg, 182.88 cm) 7 MDM: 12:23 Patient medically screened. [facility] 14:26 Data reviewed: vital signs, nurses notes. Counseling: I had a detailed discussion with emani the patient and/or guardian regarding: the historical points, exam findings, and any diagnostic results supporting the discharge/admit diagnosis, lab results, radiology results, the need for outpatient follow up, to return to the emergency department if symptoms worsen or persist or if there are any questions or concerns that arise at home. ED course: Patient is alert and non toxic in appearance in the ED. Pain may be due to a passed kidney stone. Patient advised to follow up with pcp and otherwise given strict return precautions. Patient understood and agrees with the plan of care. . 05/24 12:31 Order name: Basic Metabolic Panel; Complete Time: 13:39 [facility] 05/24 12:31 Order name: CBC with Diff; Complete Time: 13:31 [facility] 05/24 12:31 Order name: Creatinine for Radiology; Complete Time: 13:39 [facility] 05/24 12:31 Order name: Hepatic Function; Complete Time: 13:39 [facility] 05/24 12:31 Order name: Lipase; Complete Time: 13:39 [facility] 05/24 13:07 Order name: Urine Dipstick--Ancillary (enter results); Complete Time: 13:31 em1 05/24 12:31 Order name: IV Saline Lock; Complete Time: 13:38 [facility] 05/24 12:31 Order name: Labs collected and sent; Complete Time: 13:39 [facility] 05/24 12:31 Order name: Urine Dipstick-Ancillary (obtain specimen); Complete Time: 14:51 [facility] 05/24 12:31 Order name: CT Stone Protocol; Complete Time: 13:31 [facility] Administered Medications: No medications were administered Disposition: 17:17 Co-signature as Attending Physician, Rik Arroyo MD I agree with the assessment and kdr plan of care. Disposition: 05/25/19 14:27 Discharged to Home. Impression: Flank Pain. - Condition is Stable. - Discharge Instructions: Flank Pain, Adult. - Medication Reconciliation Form, Thank You Letter, Antibiotic Education, Prescription Opioid Use form. - Follow up: Private Physician; When: 2 - 3 days; Reason: Recheck today's complaints, Continuance of care, Re-evaluation by your physician. Signatures: Dispatcher [employer] EDMS Rik Arroyo MD MD kdr Mickail, Joel, PA PA [facility] Gerry Mendes RN RN jl7 Corrections: (The following items were deleted from the chart) 15:10 14:27 05/25/2019 14:27 Discharged to Home. Impression: Flank Pain. Condition is Stable. jl7 Forms are Medication Reconciliation Form, Thank You Letter, Antibiotic Education, Prescription Opioid Use. Follow up: Private Physician; When: 2 - 3 days; Reason: Recheck today's complaints, Continuance of care, Re-evaluation by your physician. [facility]
[2019-05-25 15:20] VITALS: BP 143/101; TEMP 98.8; O2SAT 99
== END 2019-05-25 15:10 | disposition home or self-care (01) ==
LOC: ER 12:07
DX: R10.9 Unspecified abdominal pain (principal); F20.9 Schizophrenia, unspecified; F31.9 Bipolar disorder, unspecified
CPT/HCPCS: 36415; 74176; 76377; 80048; 80076; 81003; 83690; 85025; 99283

== ENCOUNTER → 2023-06-04 | Emergency (ER) | payer SELFPAY ==
[~2023-06-04] MED LIST: CEFAZOLIN SODIUM 2 GM/VIAL ONE; ETOMIDATE 20 MG/10 ML VIAL IV ONE; FENTANYL CITR 100 MCG/2 ML ONE; MIDAZOLAM HCL 5 ML ONE; MORPHINE 4 MG/ML SYR ONE; NA CHLORIDE 0.9% 1,000 ML ONE; NA CHLORIDE 0.9% 100 ML ONE; NA CHLORIDE 0.9% 50 ML ONE; ONDANSETRON 4 MG/2 ML VIAL ONE; ROCURONIUM 50 MG/5 ML VIAL IV ONE; SUCCINYLCHOLINE 20 MG/ML (10 ML) IV ONE; propofoL 1,000 MG/100 ML VIAL IV ONE
[2023-06-05 00:13] LABS: Absolute Basophils 0.1 K/uL (0-0.5); Absolute Lymphocytes (CBC) 1.2 K/uL (0.7-4.9); Absolute Monocytes 1.1 K/uL (0.1-1.3); Absolute Neutrophil 14.9 K/uL (1.8-8.0); Basophils % 0.4 % (0-1.3); Eosinophils % 0.1 % (0-4.4); Hematocrit 41.9 % (39.6-49.0); Hemoglobin 14.2 g/dL (13.6-17.9); Lymphocytes % 6.8 % (15.3-44.8); MCH 30.7 pg (27.0-35.0); MCV 90.4 fL (80-100); MPV 9.1 fL (7.6-11.3); Monocytes % 6.5 % (3.3-12.3); Neutrophils % 86.2 % (41.7-73.7); Platelets 218 thou/uL (152-406); RBC Red Blood Cell Count 4.64 M/uL (4.33-5.43); Red Cell Distribution Width 13.8 % (12.1-15.2)
[2023-06-05 00:20] LABS: PT Prothrombin Time 11.6 SECONDS (9.5-12.5); Protime INR 1.06
[2023-06-05 00:27] LABS: Anion Gap 10.4 mEq/L (5.0-15.0); Potassium 3.4 mEq/L (3.5-5.1)
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
[2023-06-05 05:40] VITALS: BP 110/65; TEMP 98; O2SAT 100
--- NOTE | 2023-06-05 17:02 | RAD REPORT ---
EXAM DESCRIPTION: XR FEMUR 2 VIEWS LEFT CLINICAL HISTORY: Left femur X ray COMPARISON: None. TECHNIQUE: XR FEMUR 2 VIEWS LEFT 06/05/2023 2:11 AM CDT FINDINGS: There is no fracture. Joint spaces are preserved. Soft tissues are unremarkable. IMPRESSION: No acute osseous findings. Electronically signed by: Srikanth Alvarado MD 06/05/2023 03:43 AM CDT Due to temporary technical issues with the PACS/Fluency reporting system, reports are being signed by the in house radiologists without review as a courtesy to insure prompt reporting. The interpreting radiologist is fully responsible for the content of the report.
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
== END ==
LOC: ER 23:09
PROC: 0W9B30Z Drainage of Left Pleural Cavity with Drainage Device, Percutaneous Approach (ICD-10-PCS; principal; 2023-06-04)
PROC: 05HN33Z Insertion of Infusion Device into Left Internal Jugular Vein, Percutaneous Approach (ICD-10-PCS; 2023-06-04)
DX: S27.2XXA Traumatic hemopneumothorax, initial encounter (principal); S22.42XA Multiple fractures of ribs, left side, initial encounter for closed fracture; S32.019A Unspecified fracture of first lumbar vertebra, initial encounter for closed fracture; S32.029A Unspecified fracture of second lumbar vertebra, initial encounter for closed fracture; S32.039A Unspecified fracture of third lumbar vertebra, initial encounter for closed fracture; S32.049A Unspecified fracture of fourth lumbar vertebra, initial encounter for closed fracture; S32.059A Unspecified fracture of fifth lumbar vertebra, initial encounter for closed fracture; T79.7XXA Traumatic subcutaneous emphysema, initial encounter; S36.892A Contusion of other intra-abdominal organs, initial encounter; F10.129 Alcohol abuse with intoxication, unspecified; R45.1 Restlessness and agitation; V89.2XXA Person injured in unspecified motor-vehicle accident, traffic, initial encounter; F20.9 Schizophrenia, unspecified
CPT/HCPCS: 31500; 36415; 51702; 70450; 71045; 71260; 72125; 74177; 94002; 99291; 99292; J2405; J7030; Q9967

== ENCOUNTER 2024-11-10 10:50 | Emergency (ER) | payer SELFPAY ==
[2024-11-10 11:37] LABS: Absolute Lymphocytes (CBC) 1.7 K/uL (0.7-4.9); Hematocrit 45.8 % (39.6-49.0); Hemoglobin 16.0 g/dL (13.6-17.9); MCH 30.5 pg (27.0-35.0); MCHC 34.8 g/dL (32.0-36.0); MCV 87.7 fL (80-100); MPV 9.3 fL (7.6-11.3); Nucleated RBC Absolute Count 0.0 (0-0); Nucleated Red Blood Cells % 0.1 % (0-0); RBC Red Blood Cell Count 5.23 M/uL (4.33-5.43); White Blood Count 9.70 thou/uL (4.3-10.9)
[2024-11-10 11:38] LABS: PT Prothrombin Time 12.0 SECONDS (10-13.0); PTT, Activated Partial Thromb 25.0 SECONDS (27.2-37.4); Protime INR 1.06
[2024-11-10 12:02] LABS: ALT/SGPT 41 U/L (16-61); AST/SGOT 29 U/L (15-37); Albumin 4.0 g/dL (3.4-5.0); Albumin/Globulin Ratio 1.2 (1.1-1.8); Alkaline Phosphatase 125 U/L (45-117); Anion Gap 9.6 mEq/L (5.0-15.0); BUN Blood Urea Nitrogen 16 mg/dL (7-18); Bilirubin Indirect, Calculated 0.6 mg/dL (0.2-0.8); Globulin 3.4 g/dL (2.3-3.5); Glucose Level 112 mg/dL (74-106); Potassium 3.6 mEq/L (3.5-5.1)
--- NOTE | 2024-11-10 14:44 | EDPHYS ---
Physician Documentation [facility] Name: Raymond Schultz Age: 39 yrs Sex: Male : 1985 Arrival Date: 11/10/2024 Time: 10:50 Bed 19 Private MD: ED Physician Huber Morley HPI: 11/10 12:49 This 39 yrs old Male presents to ER via Ambulatory with complaints of Psych Problem. sp3 12:49 39-year-old male with history of bipolar disease, schizophrenia, anxiety now presents sp3 to the ED for chief complaint acute psychosis on chronic with occasional thoughts of suicidal ideation. He denies any other somatic symptoms including fever, trauma, headache, chest pain, shortness breath, abdominal pain, vomit, diarrhea, substance use, changes in medications, changes in personal life or any other signs or symptoms on ROS at this time.. Historical: - Allergies: 11:03 No Known Allergies; ll1 - PMHx: 11:03 Anxiety; Bipolar disorder; Depression; Schizophrenia; ll1 - PSHx: 11:03 plate R rib cage area; ll1 - Immunization history:: Adult Immunizations up to date. - Infectious Disease History:: Denies. - Social history:: Smoking status: Reported history of juuling and/or vaping. ROS: 12:50 Constitutional: Negative for fever, chills, and weight loss, Eyes: Negative for injury, sp3 pain, redness, and discharge, Neck: Negative for injury, pain, and swelling, Cardiovascular: Negative for chest pain, palpitations, and edema, Respiratory: Negative for shortness of breath, cough, wheezing, and pleuritic chest pain, Abdomen/GI: Negative for abdominal pain, nausea, vomiting, diarrhea, and constipation, Back: Negative for injury and pain, : Negative for injury, bleeding, discharge, and swelling, MS/Extremity: Negative for injury and deformity, Skin: Negative for injury, rash, and discoloration, Neuro: Negative for headache, weakness, numbness, tingling, and seizure, Allergy/Immunology: Negative for hives, rash, and allergies, Endocrine: Negative for neck swelling, polydipsia, polyuria, polyphagia, and marked weight changes, Hematologic/Lymphatic: Negative for swollen nodes, abnormal bleeding, and unusual bruising, 12:50 All other systems are negative, Exam: 12:50 Constitutional: This is a well developed, well nourished patient who is awake, alert, sp3 and in no acute distress. Head/Face: Normocephalic, atraumatic. Eyes: Pupils equal round and reactive to light, extra-ocular motions intact. Lids and lashes normal. Conjunctiva and sclera are non-icteric and not injected. Cornea within normal limits. Periorbital areas with no swelling, redness, or edema. Neck: Trachea midline, no thyromegaly or masses palpated, and no cervical lymphadenopathy. Supple, full range of motion without nuchal rigidity, or vertebral point tenderness. No Meningismus. Chest/axilla: Normal chest wall appearance and motion. Nontender with no deformity. No lesions are appreciated. Cardiovascular: Regular rate and rhythm with a normal S1 and S2. No gallops, murmurs, or rubs. Normal PMI, no JVD. No pulse deficits. Respiratory: Lungs have equal breath sounds bilaterally, clear to auscultation and percussion. No rales, rhonchi or wheezes noted. No increased work of breathing, no retractions or nasal flaring. Abdomen/GI: Soft, non-tender, with normal bowel sounds. No distension or tympany. No guarding or rebound. No evidence of tenderness throughout. Back: No spinal tenderness. No costovertebral tenderness. Full range of motion. Skin: Warm, dry with normal turgor. Normal color with no rashes, no lesions, and no evidence of cellulitis. MS/ Extremity: Pulses equal, no cyanosis. Neurovascular intact. Full, normal range of motion. Neuro: Awake and alert, GCS 15, oriented to person, place, time, and situation. Cranial nerves II-XII grossly intact. Motor strength 5/5 in all extremities. Sensory grossly intact. Cerebellar exam normal. Normal gait. 12:50 Psych: Patient is psychotic hearing voices. He appears to be responding to internal stimuli. He does not give a clear answer on suicidal ideation.. 12:52 ECG was reviewed by the Attending Physician. EKG demonstrates normal sinus rhythm at 81 sp3 bpm with normal intervals, normal QRS, normal axis, normal axis ST segments without evidence of acute ischemia. Vital Signs: 11:03 BP 126 / 102; Pulse 93; Resp 16; Temp 97.2; Pulse Ox 98% ; Weight 120.2 kg; Height 6 ll1 ft. 0 in. ; Pain 0/10; 14:26 BP 130 / 80; Pulse 88; Resp 16; Pulse Ox 95% on R/A; ll1 14:59 BP 153 / 107; Pulse 77; Resp 17; Pulse Ox 96% on R/A; Pain 0/10; ll1 11:03 Body Mass Index 35.94 (120.20 kg, 182.88 cm) ll1 11:03 Pain Scale: Adult ll1 14:59 Pain Scale: Adult ll1 MDM: 10:56 Medical Screening Exam initiated sp3 12:50 Data reviewed: vital signs, nurses notes, lab test result(s), EKG. ED course: sp3 39-year-old male with PMH above now with acute psychosis. No pharmacological intervention indicated acutely. Patient will need evaluation by [facility] for further management once and if medically cleared. Differential diagnosis includes psychosis, schizophrenia, manic episode with psychosis, metabolic abnormality, among others. Standard psych workup ordered.. 14:43 ED course: Patient denying suicidality now states that he was confused earlier. He is 3 ade for safety. No close would not see patient since he is not suicidal. Vital signs are normal. Patient may have some psychosis at baseline. We will discharge him home at this time.. 11/10 10:59 Order name: Acetaminophen; Complete Time: 14: [facility] 11/10 10:59 Order name: Basic Metabolic Panel; Complete Time: 14: [facility] 11/10 10:59 Order name: CBC with Diff; Complete Time: 14: [facility] 11/10 10:59 Order name: ETOH Level; Complete Time: 14: [facility] 11/10 10:59 Order name: Hepatic Function; Complete Time: 14: [facility] 11/10 10:59 Order name: PT-INR; Complete Time: 14: [facility] 11/10 10:59 Order name: Ptt, Activated; Complete Time: 14: [facility] 11/10 10:59 Order name: Salicylate; Complete Time: 14: [facility] 11/10 10:59 Order name: EKG - Nurse/Tech; Complete Time: 11:14 [facility] 11/10 10:59 Order name: IV Saline Lock; Complete Time: 11: [facility] 11/10 10:59 Order name: Labs collected and sent; Complete Time: 11:14 sp3 11/10 10:59 Order name: Suicide Screening (Julia); Complete Time: 11:14 sp3 Administered Medications: No medications were administered Disposition Summary: 11/10/24 14:44 Discharge Ordered Notes: Location: Home sp3 Condition: Stable sp3 Diagnosis - Psychosis, schizophrenia sp3 Followup: sp3 - With: Private Physician - When: Upon discharge from the Emergency Department - Reason: Recheck today's complaints, Continuance of care Discharge Instructions: - Discharge Summary Sheet sp3 - Psychosis sp3 Forms: - Medication Reconciliation Form sp3 - Antibiotic Education sp3 - Prescription Opioid Use sp3 - Patient Portal Instructions sp3 - Leadership Thank You Letter sp3 Signatures: Dispatcher [employer] Angie Spivey RN RN ll1 Huber Morley MD MD sp3
--- NOTE | 2024-11-10 14:44 | ER ---
Nurse's Notes [facility] Name: Raymond Schultz Age: 39 yrs Sex: Male : 1985 Arrival Date: 11/10/2024 Time: 10:50 Bed 19 Private MD: Diagnosis: Psychosis, schizophrenia Presentation: 11/10 11:03 Chief complaint: Patient states: Feel anxious out in public, gets angry easy. States ll1 when he gets to the hospital he always feels better. Coronavirus screen: Client denies travel out of the [place] in the last 14 days. At this time, the client does not indicate any symptoms associated with coronavirus-19. Ebola Screen: Patient denies travel to an Ebola-affected area in the 21 days before illness onset. Initial Sepsis Screen: Does the patient meet any 2 criteria? No. Patient's initial sepsis screen is negative. Does the patient have a suspected source of infection? No. Patient's initial sepsis screen is negative. Risk Assessment: Do you want to hurt yourself or someone else? Patient reports no desire to harm self or others. Onset of symptoms was November 03, 2024. 11:03 Method Of Arrival: Ambulatory ll1 11:03 Acuity: LISA 3 ll1 Triage Assessment: 11:03 General: Appears distressed, uncomfortable, Behavior is cooperative, anxious. General: hb Reports being anxious, scared, afraid in public. Wants to go to a psych facility for mental help. Pain: Denies pain. Historical: - Allergies: 11:03 No Known Allergies; ll1 - PMHx: 11:03 Anxiety; Bipolar disorder; Depression; Schizophrenia; ll1 - PSHx: 11:03 plate R rib cage area; ll1 - Immunization history:: Adult Immunizations up to date. - Infectious Disease History:: Denies. - Social history:: Smoking status: Reported history of juuling and/or vaping. Screenin:28 [facility] ED Fall Risk Assessment (Adult) History of falling in the last 3 months, ll1 including since admission No falls in past 3 months (0 pts) Confusion or Disorientation No (0 pts) Intoxicated or Sedated No (0 pts) Impaired Gait No (0 pts) Mobility Assist Device Used No (0 pt) Altered Elimination No (0 pt) Score/Fall Risk Level 0 - 2 = Low Risk Maintained a safe environment, Hourly rounding (assess needs \\T\\ fall precautionary measures) done. Abuse screen: Denies threats or abuse. Nutritional screening: No deficits noted. Tuberculosis screening: No symptoms or risk factors identified. Assessment: 11:28 Reassessment: No changes from previously documented assessment. Patient and/or family ll1 updated on plan of care and expected duration. Pain level reassessed. Patient is alert, oriented x 3, equal unlabored respirations, skin warm/dry/pink. 13:13 Reassessment: Patient and/or family updated on plan of care and expected duration. Pain ll1 level reassessed. 14:10 Reassessment: No changes from previously documented assessment. Patient and/or family ll1 updated on plan of care and expected duration. Pain level reassessed. Patient is alert, oriented x 3, equal unlabored respirations, skin warm/dry/pink. 15:00 Reassessment: No changes from previously documented assessment. Patient and/or family ll1 updated on plan of care and expected duration. Pain level reassessed. Patient is alert, oriented x 3, equal unlabored respirations, skin warm/dry/pink. Psych: 13:14 [place] Suicide Severity Screening: In the past month, have you wished you were ll1 or wished you could go to sleep and not wake up? Patient responds "No." "In the past month, have you actually had any thoughts of killing yourself?" Patient responds "no." "In your lifetime, have you ever done anything, started to do anything, or prepared to do anything to end your life?" Patient responds "no.". Subjective: Patient's mood is angry, Delusions are denied, Hallucinations are denied suspected, Having thoughts of none at this time. Objective: Patient is cooperative, anxious Speech is normal, Affect is appropriate, anxious. Interventions: Patient reassessed during use of restraints. Patient is physically safe. Patient assessed for signs of distress. Patient remains reasonably comfortable at this time. Safety Checks: Hourly rounding. Pt denies substance abuse. 15:00 Commitment: Patient will be a voluntary commitment. ll1 Vital Signs: 11:03 BP 126 / 102; Pulse 93; Resp 16; Temp 97.2; Pulse Ox 98% ; Weight 120.2 kg; Height 6 ll1 ft. 0 in. ; Pain 0/10; 14:26 BP 130 / 80; Pulse 88; Resp 16; Pulse Ox 95% on R/A; ll1 14:59 BP 153 / 107; Pulse 77; Resp 17; Pulse Ox 96% on R/A; Pain 0/10; ll1 11:03 Body Mass Index 35.94 (120.20 kg, 182.88 cm) ll1 11:03 Pain Scale: Adult ll1 14:59 Pain Scale: Adult ll1 ED Course: 10:50 Patient arrived in ED. rg4 10:56 Huber Morley MD is Attending Physician. sp3 11:03 Arm band placed on Patient placed in an exam room. ll1 11:05 Triage completed. ll1 11:06 Angie Aparicio RN is Primary Nurse. ll1 11:14 Initial lab(s) drawn, by me, sent to lab. EKG done. Inserted saline lock: 22 gauge in hb right antecubital area, using aseptic technique. Blood collected. Flushed with 10 mL NS. 11:28 Patient has correct armband on for positive identification. Provided Education on: ER ll1 procedures and process. 13:16 No provider procedures requiring assistance completed. ll1 15:00 IV discontinued, intact, bleeding controlled, No redness/swelling at site. Pressure ll1 dressing applied. Administered Medications: No medications were administered Medication: 11:29 VIS not applicable for this client. ll1 Outcome: 14:44 Discharge ordered by . sp3 15:00 Discharged to home ambulatory, ll1 15:00 Condition: stable 15:00 Discharge instructions given to patient, Instructed on discharge instructions, follow up and referral plans. Demonstrated understanding of instructions, follow-up care, 15:00 Patient left the ED. ll1 Signatures: Tiffany Guajardo, RN HARJIT Lindy Howe rg4 Angie Aparicio RN RN ll1 Huber Morley MD MD sp3
[2024-11-10 16:21] VITALS: TEMP 97.2
[2024-11-10 16:24] VITALS: BP 153/107; O2SAT 96
== END 2024-11-10 15:00 | disposition home or self-care (01) ==
LOC: ER 10:50
DX: F20.9 Schizophrenia, unspecified (principal)
CPT/HCPCS: 36415; 80048; 80076; 80143; 80179; 82077; 85025; 85610; 85730; 93005; 99285